=== PATIENT | male | born 1985 | race African-American/Black ===

== ENCOUNTER 2019-01-25 16:01 | Emergency (ER) | payer OTHER ==
[~2019-01-25] VITALS: Ht 167.6 cm; Wt 72.6 kg
[2019-01-25 16:21] VITALS: BP 128/92
[2019-01-25] MEDS ORDERED: MEDROLDOSEPACK PO (16:53)
== END 2019-01-25 17:08 | disposition home or self-care (01) ==
LOC: M.ERS 16:01
DX: J02.9 Acute pharyngitis, unspecified (principal)